=== PATIENT | male | born 1960 | race Asian ===

== ENCOUNTER 2018-06-29 23:55 | Inpatient (IN) | payer OTHER ==
[~2018-06-29] VITALS: Ht 154.9 cm; Wt 72.0 kg
[2018-06-30 00:34] LABS: BASOPHIL % 0.3 % (0-2); PLATELET COUNT 294 x10^3mcL (130-400); RED CELL DISTRIBUTION WIDTH 13.1 % (11.5-14.5)
[2018-06-30 00:41] LABS: CALCIUM 9.4 mg/dL (8.5-10.1); CARBON DIOXIDE 26.2 mmol/L (21-32); CHLORIDE SERUM 102 mmol/L (98-107); CREATININE SERUM 1.3 mg/dL (0.7-1.3); GFR1 > 60 mL/min; GLUCOSE SERUM 147 mg/dL (74-106); POTASSIUM SERUM 3.7 mmol/L (3.5-5.1); SODIUM SERUM 138 mmol/L (136-145)
[2018-06-30 00:45] LABS: ALBUMIN 4.3 g/dL (3.4-5.0); ALKALINE PHOSPHATASE 63 U/L (46-116); ALT/SGPT 53 U/L (16-63); AST/SGOT 47 U/L (15-37); BILIRUBIN TOTAL 2.1 mg/dL (0.20-1.00); LIPASE 109 IU/L (73-393); TOTAL PROTEIN, SERUM 8.2 g/dL (6.4-8.2)
[2018-06-30] MEDS ORDERED: PEP20 PO (04:35)
[2018-06-30 05:15] VITALS: BP 131/78
[2018-06-30 05:17] VITALS: Ht 154.9 cm; Wt 72.0 kg
[2018-06-30 06:00] LABS: MAGNESIUM 2.1 mg/dL (1.8-2.4); PHOSPHOROUS 1.8 mg/dL (2.5-4.9)
[2018-06-30 06:03] LABS: CHOLESTEROL/HDL RATIO 2.9
[2018-06-30 06:09] LABS: T3 TOTAL 1.43 ng/mL
[2018-06-30 06:22] LABS: FREE T4 1.05 ng/dL (0.76-1.46); FREE THYROXINE INDEX 3.2 ug/dL (1.4-4.5); T4(THYROXINE) 9.7 ug/dL (4.7-13.3)
[2018-06-30 09:15] VITALS: BP 125/77
[2018-06-30 13:02] LABS: BASOPHIL % 0.1 % (0-2); PLATELET COUNT 249 x10^3mcL (130-400)
[2018-06-30 13:03] LABS: CALCIUM 8.5 mg/dL (8.5-10.1); CARBON DIOXIDE 27.2 mmol/L (21-32); CHLORIDE SERUM 106 mmol/L (98-107); CREATININE SERUM 1.2 mg/dL (0.7-1.3); GFR1 > 60 mL/min; GLUCOSE SERUM 138 mg/dL (74-106); SODIUM SERUM 140 mmol/L (136-145)
[2018-06-30 16:50] VITALS: BP 107/68
[2018-06-30 21:17] VITALS: BP 118/75
[2018-07-01 05:35] VITALS: BP 125/82
[2018-07-01 06:51] LABS: BASOPHIL % 0.4 % (0-2); PLATELET COUNT 240 x10^3mcL (130-400); RED CELL DISTRIBUTION WIDTH 13.1 % (11.5-14.5)
[2018-07-01 07:05] LABS: CALCIUM 8.2 mg/dL (8.5-10.1); CARBON DIOXIDE 28.1 mmol/L (21-32); CREATININE SERUM 1.7 mg/dL (0.7-1.3); PHOSPHOROUS 2.7 mg/dL (2.5-4.9); POTASSIUM SERUM 4.5 mmol/L (3.5-5.1)
[2018-07-01 08:35] LABS: UA SPECIFIC GRAVITY >=1.030 (1.005-1.035); microscopic required? YES; urine erythrocyte NEGATIVE (NEGATIVE)
[2018-07-01 09:40] VITALS: BP 127/86
[2018-07-01 14:35] VITALS: BP 110/65
[2018-07-01 16:16] VITALS: BP 101/64
[2018-07-01 17:28] LABS: UA SPECIFIC GRAVITY >=1.030 (1.005-1.035); microscopic required? YES; urine erythrocyte NEGATIVE (NEGATIVE)
[2018-07-01 17:50] VITALS: BP 101/64
[2018-07-01 20:00] VITALS: BP 94/67
[2018-07-02] VITALS (7 sets, daily range): BP systolic 97–138; BP diastolic 54–80
[2018-07-02 05:17] LABS: BASOPHIL % 0.1 % (0-2); PLATELET COUNT 211 x10^3mcL (130-400); RED CELL DISTRIBUTION WIDTH 13.3 % (11.5-14.5)
[2018-07-02 05:24] LABS: CALCIUM 8.2 mg/dL (8.5-10.1); CREATININE SERUM 1.6 mg/dL (0.7-1.3); PHOSPHOROUS 2.4 mg/dL (2.5-4.9); POTASSIUM SERUM 4.4 mmol/L (3.5-5.1)
[2018-07-03 05:39] VITALS: BP 124/78
[2018-07-03 06:33] LABS: BASOPHIL % 0.1 % (0-2); PLATELET COUNT 210 x10^3mcL (130-400); RED CELL DISTRIBUTION WIDTH 13.2 % (11.5-14.5)
[2018-07-03 06:50] LABS: CALCIUM 8.2 mg/dL (8.5-10.1); CARBON DIOXIDE 27.1 mmol/L (21-32); CHLORIDE SERUM 104 mmol/L (98-107); CREATININE SERUM 1.3 mg/dL (0.7-1.3); GFR1 > 60 mL/min; GLUCOSE SERUM 116 mg/dL (74-106); MAGNESIUM 2.2 mg/dL (1.8-2.4); POTASSIUM SERUM 3.3 mmol/L (3.5-5.1); SODIUM SERUM 139 mmol/L (136-145)
[2018-07-03 09:00] VITALS: BP 110/70
[2018-07-03 12:15] VITALS: BP 110/66
[2018-07-03 16:30] VITALS: BP 125/70
[2018-07-03 20:09] VITALS: BP 117/72
[2018-07-04 05:47] VITALS: BP 121/79
[2018-07-04 07:03] LABS: BASOPHIL % 0.3 % (0-2); PLATELET COUNT 237 x10^3mcL (130-400); RED CELL DISTRIBUTION WIDTH 12.8 % (11.5-14.5)
[2018-07-04 07:26] LABS: CALCIUM 8.4 mg/dL (8.5-10.1); CARBON DIOXIDE 29.1 mmol/L (21-32); CHLORIDE SERUM 103 mmol/L (98-107); CREATININE SERUM 1.1 mg/dL (0.7-1.3); GFR1 > 60 mL/min; GLUCOSE SERUM 135 mg/dL (74-106); MAGNESIUM 2.3 mg/dL (1.8-2.4); POTASSIUM SERUM 3.4 mmol/L (3.5-5.1); SODIUM SERUM 138 mmol/L (136-145)
[2018-07-04 09:38] VITALS: BP 122/82
[2018-07-04 13:17] VITALS: BP 129/75
[2018-07-04 16:32] VITALS: BP 123/79
[2018-07-04 21:02] VITALS: BP 120/80
[2018-07-05 05:50] LABS: BASOPHIL % 0.3 % (0-2); PLATELET COUNT 289 x10^3mcL (130-400)
[2018-07-05 05:53] VITALS: BP 115/74
[2018-07-05 06:42] LABS: CALCIUM 8.7 mg/dL (8.5-10.1); CARBON DIOXIDE 28.5 mmol/L (21-32); CHLORIDE SERUM 106 mmol/L (98-107); CREATININE SERUM 1.1 mg/dL (0.7-1.3); GFR1 > 60 mL/min; GLUCOSE SERUM 129 mg/dL (74-106); POTASSIUM SERUM 4.2 mmol/L (3.5-5.1); SODIUM SERUM 143 mmol/L (136-145)
[2018-07-05 09:28] VITALS: BP 123/81
[2018-07-05 14:20] VITALS: BP 117/73
[2018-07-05 16:53] VITALS: BP 116/76
[2018-07-05 20:29] VITALS: BP 126/79
[2018-07-06 05:20] VITALS: BP 124/76
[2018-07-06 07:01] LABS: ALKALINE PHOSPHATASE 66 U/L (46-116); ALT/SGPT 144 U/L (16-63); AST/SGOT 110 U/L (15-37); BILIRUBIN DIRECT 3.05 mg/dL (0.0-0.2); BILIRUBIN TOTAL 4.7 mg/dL (0.20-1.00); CALCIUM 8.5 mg/dL (8.5-10.1); CARBON DIOXIDE 25.3 mmol/L (21-32); CHLORIDE SERUM 105 mmol/L (98-107); CREATININE SERUM 1.2 mg/dL (0.7-1.3); GFR1 > 60 mL/min; GLUCOSE SERUM 127 mg/dL (74-106); POTASSIUM SERUM 3.9 mmol/L (3.5-5.1); SODIUM SERUM 140 mmol/L (136-145); TOTAL PROTEIN, SERUM 6.5 g/dL (6.4-8.2)
[2018-07-06 09:35] VITALS: BP 108/70; BP 177/88
[2018-07-06 13:05] VITALS: BP 110/73
[2018-07-06 17:32] VITALS: BP 121/62
[2018-07-06 22:04] VITALS: BP 106/66
[2018-07-07] VITALS (7 sets, daily range): BP systolic 105–119; BP diastolic 58–81
[2018-07-07 06:12] LABS: BASOPHIL % 0.2 % (0-2); PLATELET COUNT 388 x10^3mcL (130-400); RED CELL DISTRIBUTION WIDTH 13.4 % (11.5-14.5)
[2018-07-07 06:28] LABS: ALKALINE PHOSPHATASE 76 U/L (46-116); ALT/SGPT 177 U/L (16-63); AST/SGOT 119 U/L (15-37); BILIRUBIN TOTAL 3.44 mg/dL (0.20-1.00); CALCIUM 8.3 mg/dL (8.5-10.1); CARBON DIOXIDE 24.3 mmol/L (21-32); CHLORIDE SERUM 109 mmol/L (98-107); GFR1 > 60 mL/min; GLUCOSE SERUM 124 mg/dL (74-106); POTASSIUM SERUM 3.8 mmol/L (3.5-5.1); SODIUM SERUM 141 mmol/L (136-145); TOTAL PROTEIN, SERUM 6.4 g/dL (6.4-8.2)
[2018-07-07 06:48] LABS: ALBUMIN 1.9 g/dL (3.4-5.0)
[2018-07-08 05:34] VITALS: BP 106/59
[2018-07-08 06:41] LABS: BASOPHIL % 0.2 % (0-2); RED CELL DISTRIBUTION WIDTH 13.2 % (11.5-14.5)
[2018-07-08 06:46] LABS: ALKALINE PHOSPHATASE 87 U/L (46-116); ALT/SGPT 206 U/L (16-63); AST/SGOT 107 U/L (15-37); BILIRUBIN DIRECT 1.82 mg/dL (0.0-0.2); BILIRUBIN TOTAL 2.92 mg/dL (0.20-1.00); CALCIUM 8.5 mg/dL (8.5-10.1); CARBON DIOXIDE 23.7 mmol/L (21-32); CHLORIDE SERUM 107 mmol/L (98-107); GFR1 > 60 mL/min; GLUCOSE SERUM 94 mg/dL (74-106); POTASSIUM SERUM 4.4 mmol/L (3.5-5.1); SODIUM SERUM 140 mmol/L (136-145); TOTAL PROTEIN, SERUM 6.8 g/dL (6.4-8.2)
[2018-07-08 06:47] LABS: PLATELET COUNT 464 x10^3mcL (130-400)
[2018-07-08 06:52] LABS: ALBUMIN 2.1 g/dL (3.4-5.0)
[2018-07-08 09:28] VITALS: BP 109/71
[2018-07-08 13:13] VITALS: BP 111/73
[2018-07-08 16:49] VITALS: BP 108/83
[2018-07-08 19:10] VITALS: BP 107/74
[2018-07-08] MEDS ORDERED: LOV40I SQ (23:25)
[2018-07-08] MEDS ORDERED: REG10I IV (23:25)
[2018-07-08] MEDS ORDERED: MP PO (23:26)
[2018-07-08] MEDS ORDERED: ROC1I IV (23:27)
[2018-07-08] MEDS ORDERED: ROCEPHIN IV (23:28)
[2018-07-08] MEDS ORDERED: DILAUDID IV (23:29)
[2018-07-08] MEDS ORDERED: ZOFRAN IV (23:30)
[2018-07-08 23:32] VITALS: BP 107/74
[2018-07-08] MEDS ORDERED: PROTONIX IV (23:35)
== END 2018-07-09 02:18 | disposition short-term general hospital (02) | DRG 344 ==
LOC: ED 23:55 → MU 06-30 04:09 → IC 06-30 04:09 → MU 06-30 04:49 → IC 07-01 14:50 → DU 07-02 18:10
PROVIDERS: Emergency Medicine; Family Medicine; Internal Medicine; Internal Medicine Pulmonary Disease; Surgery; ADMIT Internal Medicine Pulmonary Disease
PROC: 0D9670Z Drainage of Stomach with Drainage Device, Via Natural or Artificial Opening (ICD-10-PCS; 2018-07-01)
PROC: 0DC80ZZ Extirpation of Matter from Small Intestine, Open Approach (ICD-10-PCS; principal; 2018-07-01 10:30)
DX: K56.2 Volvulus (principal); K65.9 Peritonitis, unspecified; J96.01 Acute respiratory failure with hypoxia; J96.02 Acute respiratory failure with hypercapnia; E43 Unspecified severe protein-calorie malnutrition; J98.11 Atelectasis; N17.9 Acute kidney failure, unspecified; K56.7 Ileus, unspecified; D72.829 Elevated white blood cell count, unspecified; E78.5 Hyperlipidemia, unspecified; E83.39 Other disorders of phosphorus metabolism; R74.0 Nonspecific elevation of levels of transaminase and lactic acid dehydrogenase [LDH]; Z82.49 Family history of ischemic heart disease and other diseases of the circulatory system; Z83.3 Family history of diabetes mellitus; Z68.30 Body mass index [BMI] 30.0-30.9, adult
CPT/HCPCS: 82962; 84439; 94150; C9113; J0330; J0690; J0696; J1170; J1650; J1885; J1940; J2270; J2405; J2543; J2704; J2710; J2765; J3010; J3480; J3490; J7030; J7120; J7131; Q0092; Q9967